=== PATIENT | female | born 1960 | race Two or more races ===

== ENCOUNTER 2025-07-12 00:20 | Emergency (ER) | payer OTHER ==
[~2025-07-12] VITALS: Ht 172.7 cm; Wt 86.2 kg
[2025-07-12] MEDS ORDERED: EPINEPHrine HCL 1 MG/10 ML SYRG IV ONE (00:21)
[2025-07-12] MEDS ORDERED: SODIUM BICARB 8.4% 50Meq/50ml SYR INJ IV ONE (00:21)
[2025-07-12 00:24] VITALS: PULSE 142; O2SAT 93
[2025-07-12 00:31] VITALS: BP 243/86; PULSE 108; RESP 47; TEMP 98.7; O2SAT 0
--- NOTE | 2025-07-12 00:54 | ED.PDOC ---
CPR-HPI HPI Comments 65-year-old, obese female is brought in by ambulance from private residence for chief complaint of cardiopulmonary arrest. Per EMS personnel report, patient has a limited known history of stage IV breast cancer and recent pneumonia. Patient was at home when she, initially, began complaining of being short of breath to her family, last night, before being found unresponsive after they stepped out of her sight and return 10 minutes later. Initial call for patient and arrival time of EMS personnel on scene was at 2334 and 2344, respectively, yesterday. Patient was systolic and apneic on scene, with compressions being started by EMS personnel, immediately. Initial blood glucose of 236. En route, patient re ceived 7x epinephrine rounds, calcium, sodium, 500 mL of normal saline bolus, right tibia IO, 20 gauge IV access to left AC, and 7.0 endotracheal intubation at 24 cm from the teeth. Arrival to ED at 0020 (last epinephrine administration at 0018 and estimated total down time of 50 minutes). Further history is limited, due to patient's current condition and absence of family/bioinformatics assistant historians. Chief Complaint: CPR Time Seen by MD: 00:20 Reviewed Notes: Final Cleaner Notes Allergies: Coded Allergies: NO KNOWN ALLERGIES (Unverified , 07/12/25) Information Source: Emergency Med Personnel Mode of Arrival: EMS Timing: Minutes Duration: Down time prior EMS: (4 minutes), Total time prior hopital: (50 minutes) Onset: Unknown Available Hx: Other (Stage IV breast cancer; recent pneumonia) Inital rhythm: Asystole Treatment: CPR, Intubation (7.0; 24 cm at the teeth), Epinephrine (7[place] [address])), Other (Calcium; sodium) Response: No response (PEA) Associated signs and symptoms: Dyspnea Past Medical History PAST MEDICAL HISTORY: Cancer (Stage IV breast cancer) Past Medical History (Other): History of pneumonia Surgical History: Unknown, Unobtainable 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 Clear lung sounds with bagging) Cardiovascular: Other (No palpable or auscultated pulses.) Breast Exam: Other Gastrointestinal: Soft, Other (Obese) Genitalia: Deferred Pelvic: Deferred Rectal: Deferred Extremities: Other (Cool and pale extremities) Musculoskeletal : Apperance: Normal Neurologic: Other (No blink reflex. No gag reflex. No spontaneous respirations.) Cerebellar Function: NOT DONE Reflexes: Other, None Skin: Other (Cool and ashen) Lymphatic: No Adenopathy, Other Was a procedure done? Was a procedure done?: No Differential Dx CPR Differential Diagnosis: Cardiopulmonary arrest, Cardiogenic shock, Dysrhythmia, Electrolyte disorder, Heart Block, Myocardial Infarction, Pneumothorax, Pulmonary Embolus, Respiratory Failure, Ruptured Aortic Aneurysm X-Ray, Labs, Meds, VS Vital Signs Date Time Temp Pulse Resp B/P (MAP) Pulse Ox O2 Delivery O2 Flow Rate FiO2 07/12/25 02:59 209.7 0 0 0 Ambu-Bag 0 0 07/12/25 00:31 98.7 0 0 0/0 0 98.7 07/12/25 00:31 98.7 108 47 243/86 (138) 98.7 07/12/25 00:24 98.7 142 0 47/ (33) 93 98.7 07/12/25 00:24 142 93 Mechanical Ventilator+ 15 100 100 Time of 1ST Reevaluation: 00:32 Reevaluation 1ST: Patient Education/Counseling: Other (Patient ) Family Education/Counseling: Treatment, Prognosis SEPSIS Sepsis Screen Vital Signs Date Time Temp Pulse Resp B/P (MAP) Pulse Ox O2 Delivery O2 Flow Rate FiO2 07/12/25 02:59 209.7 0 0 0 Ambu-Bag 0 0 07/12/25 00:31 98.7 0 0 0/0 0 98.7 07/12/25 00:31 98.7 108 47 243/86 (138) 98.7 07/12/25 00:24 98.7 142 0 47/26 (33) 93 98.7 07/12/25 00:24 142 93 Mechanical Ventilator+ 15 100 100 Departure 1 Departure Time of Disposition: 00:32 Impression: Primary Impression: Cardiopulmonary arrest Disposition: 20 Condition: Other () Critical Care Note Critical Care Time?: Yes (35 min-critical care time only) Critical care comment: Total critical care time: Approximately 36 minutes Due to a high probability of clinically significant, life threatening deterioration, the patient required my highest level of preparedness to intervene emergently and I personally spent this critical care time directly and personally managing the patient. This critical care time included obtaining a history; examining the patient; pulse oximetry; ordering and review of studies; arranging urgent treatment with development of a management plan; evaluation of patient's response to treatment; frequent reassessment; and, discussions with other providers. This critical care time was performed to assess and manage the high probability of imminent, life-threatening deterioration that could result in multi-organ failure. It was exclusive of separately billable procedures and treating other patients. Heart Score Heart Score: Heart Score Response (Comments) Value History N/A 0 EKG N/A 0 Age N/A 0 Risk Factors N/A 0 Troponin N/A 0 Total 0 Stability Stability form required: No I personally scribed for DONAVAN FELTON MD ([email or web address]) on 07/12/25 at 00:54. Electronically submitted by Jamie Moncada ([email or web address]). DONAVAN FELTON MD Jul 12, 2025 00:54
--- NOTE | 2025-07-12 02:59 | RESUS ---
CODE BLUE ASSESSSMENT History of Events History of Events: 65-year-old, obese female is brought in by ambulance from private residence for chief complaint of cardiopulmonary arrest. Per EMS personnel report, patient has a limited known history of stage IV breast cancer and recent pneumonia. Patient was at home when she, initially, began complaining of being short of breath to her family, last night, before being found unresponsive after they stepped out of her sight and return 10 minutes later. Initial call for patient and arrival time of EMS personnel on scene was at 2334 and 2344, respectively, yesterday. cpr initiated by family, Patient was systolic and apneic on scene, with compressions being continued by EMS personnel, immediately. Initial blood glucose of 236. En route, patient received 7x epinephrine rounds, calcium, sodium, 500 mL of normal saline bolus, right tibia IO, 20 gauge IV access to left AC, and 7.0 endotracheal intubation at 24 cm from the teeth. Arrival to ED at 0020 (last epinephrine administration at 0018 and estimated total down time of 50 minutes). Initial Information Date: Jul 11, 2025 Time: 23:34 Location of Arrest: In Field Arrest Witnessed: No CPR started initial time: 23:34 CPR started by whom: family Last seen well: 10 min prior Pre-Hospital Care: ACLS Type of arrest: Cardiac, Respiratory, Adult, Witnessed Spontaneous Respirations: No Pulse Present: No Monitoring: ECG, Pulse Oximetry, Apnea, Telemetry Crash Cart Opened and Supplies: Yes Airway Ventilation Breathing at Onset: Apneic O2 Sat by Pulse Oximetry: 0 Oxygen Delivery Method: Ambu-Bag Artificial Ventilation: Bag/Endo tube Intubation Size: 7.0 cuffed Intubated by: ems Intubated orally: Yes Intubated Nasaly: No Tube secured at: 25 Cricoid pressure done: No CO2 indicator used: Yes Confirmation: Auscultation, Exhaled CO2 Suctioning (Oral/Tracheal): Yes Comments: done by ems prior to arriving Circulation Circulation : Time: 00:22 Pulse Rate (adult): 0 Blood Pressure Systolic: 0 Blood Pressure Diastolic: 0 Temperature (Fahrenheit): 98.7 Procedure - IV Procedure - IV : IV Side: Left IV Location: Antecubital IV Placed: Pre-Hospital IV Gauge: 20 IV Line Care: Saline Flush Comment PLACED PRIOR TO ARRIVAL Procedure - Intraosseous Site of Intraosseous: Tibia asuncion-medial Intraosseous inserted by: EMS Comment: PLACED PRIOR TO ARRIVAL Medications & Response Medications and Responses #1: Medication Time: 00:22 ADULT Medications Given ADULT: Epinephrine 1 mg, Sodium Bacarbinate 50 meq Route of Administration: IV Heart Rate: 0 EKG Rhythm: PEA Blood Pressure Systolic: 0 Blood Pressure Diastolic: 0 Respiratory Rate: 0 O2 Sat by Pulse Oximetry: 0 EKG Rhythm: PEA Comment NO PULSE 0025 Medications and Responses #2: Medication Time: 00:25 ADULT Medications Given ADULT: Epinephrine 1 mg Route of Administration: IV Heart Rate: 0 EKG Rhythm: PEA Blood Pressure Systolic: 0 Blood Pressure Diastolic: 0 Respiratory Rate: 0 O2 Sat by Pulse Oximetry: 0 EKG Rhythm: PEA Comment NO PULSE 0028 Medications and Responses #3: Medication Time: 00:28 ADULT Medications Given ADULT: Epinephrine 1 mg Route of Administration: IV Heart Rate: 0 Blood Pressure Systolic: 0 Blood Pressure Diastolic: 0 Respiratory Rate: 0 O2 Sat by Pulse Oximetry: 0 EKG Rhythm: PEA Comment NO PULSE 0031, PT PRONOUNCED 0032 Pacing Pacer Pads Applied and Pacing: Yes Nurses Notes [place] Coma Scale Eye Opening: None (1) [place] Coma Scale Verbal: None (1) [place] Coma Scale Motor: None (1) [place] Total: 3 Pupil Reaction: Non Reactive Bedside Blood Glucose: 300 EKG Rhythm: PEA Time Code Ended Time Code Ended: 00:32 Post Arrest Status: Outcome of code: Unsuccessful Patient pronounced by: DR FELTON Time patient pronounced: 00:32 Family notified: Yes Attending called: Yes Code Team Present: ANNA SCHAFER RN HS, VOILET CHIEF TECHNICIAN,ABIGAIL GUZMAN PRIMARY, LETICIA RN,, DEB RN, JAIRO ERT, PATRICIO ERT, SHAYY SOLORZANO RT. Post Resuscitation Neurologica Pupil Size: 4 Comment: ANNA TIRADO Jul 12, 2025 02:59
== END 2025-07-12 00:32 ==
LOC: ER 00:20 → EDBD 00:20 → ER 00:32
DX: I46.9 Cardiac arrest, cause unspecified (principal); Z85.3 Personal history of malignant neoplasm of breast; Z87.01 Personal history of pneumonia (recurrent)
CPT/HCPCS: 82947; 92950; 99285; J0169; 99291